=== PATIENT | female | born 1930 | race Caucasian/White ===

== ENCOUNTER 2017-01-13 12:42 | Outpatient (CLI) | payer MEDICARE ==
[2017-01-13 15:14] LABS: Basophils % (Auto) 0.5 % (0.0-1.8); Eosinophils % (Auto) 3.9 % (0.0-4.3); Hematocrit 37.7 % (30.3-42.9); Hemoglobin 12.9 gm/dl (10.1-14.3); Mean Corpuscular HGB Conc 34 % (30-34); Mean Corpuscular Hemoglobin 30 pg (28-32); Mean Corpuscular Volume 88 fl (79-97); Platelet Count 215 K/mm3 (140-440); Red Blood Count 4.29 M/mm3 (3.65-5.03); Red Cell Distribution Width 14.9 % (13.2-15.2); White Blood Count 8.5 K/mm3 (4.5-11.0)
[2017-01-13 15:36] LABS: Alanine Aminotransferase 12 units/L (7-56); Albumin 4.1 g/dL (3.9-5); Albumin/Globulin Ratio 1.1 %; Alkaline Phosphatase 105 units/L (35-129); Anion Gap 20 mmol/L; Blood Urea Nitrogen 17 mg/dL (7-17); Calcium 9.4 mg/dL (8.4-10.2); Carbon Dioxide 24 mmol/L (22-30); Chloride 98.5 mmol/L (98-107); Cholesterol 166 mg/dL (50-199); Glucose 282 mg/dL (65-100); HDL Cholesterol 51 mg/dL (40-59); LDL Cholesterol,Direct 68 mg/dL (50-130); Potassium 4.1 mmol/L (3.6-5.0); Sodium 138 mmol/L (137-145); Total Protein 7.8 g/dL (6.3-8.2); Triglycerides 238 mg/dL (2-149); Uric Acid 4.5 mg/dL (3.5-7.6)
[2017-01-18 01:32] LABS: Vitamin D, 25-OH, Total 16 ng/mL (30-100)
== END 2017-01-13 12:43 | disposition home or self-care (01) ==
LOC: LABHHL 12:42
PROVIDERS: ATTEND Internal Medicine
DX: E11.8 Type 2 diabetes mellitus with unspecified complications (principal); E78.1 Pure hyperglyceridemia
CPT/HCPCS: 36415; 80053; 80061; 82306; 82607; 83036; 84550; 85025

== ENCOUNTER 2018-10-12 08:25 | Outpatient (CLI) | payer MEDICARE ==
[2018-10-12 10:55] LABS: Free T4 (Free Thyroxine) 0.99 ng/dL (0.76-1.46)
== END 2018-10-12 08:26 | disposition home or self-care (01) ==
LOC: LAB 08:25
PROVIDERS: ATTEND Internal Medicine
DX: E11.65 Type 2 diabetes mellitus with hyperglycemia (principal); E03.9 Hypothyroidism, unspecified; I10 Essential (primary) hypertension; K21.9 Gastro-esophageal reflux disease without esophagitis; E78.00 Pure hypercholesterolemia, unspecified
CPT/HCPCS: 36415; 83036; 84439; 84443

== ENCOUNTER 2019-01-26 15:02 | Outpatient (CLI) | payer MEDICARE ==
--- NOTE | 2019-01-26 16:25 | XRay Report ---
RIGHT KNEE 3 VIEWS INDICATION / CLINICAL INFORMATION: M25.561 PAIN IN RIGHT KNEE. COMPARISON: None available. 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 There are large loose bodies se en in the joint and superior patellar recess Signer Name: Tonny Banda MD FACJasmin Signed: 01/26/2019 4:21 PM Workstation Name: [id number]
== END 2019-01-26 15:03 | disposition home or self-care (01) ==
LOC: XRAY 15:02
PROVIDERS: ATTEND Internal Medicine
DX: M17.11 Unilateral primary osteoarthritis, right knee (principal); M11.261 Other chondrocalcinosis, right knee; E11.65 Type 2 diabetes mellitus with hyperglycemia; E78.00 Pure hypercholesterolemia, unspecified; I10 Essential (primary) hypertension; K21.9 Gastro-esophageal reflux disease without esophagitis; E11.9 Type 2 diabetes mellitus without complications

== ENCOUNTER 2019-02-08 09:07 | Outpatient (CLI) | payer MEDICARE ==
[2019-02-08 11:53] LABS: Chol/HDL Ratio 2.19 %
== END 2019-02-08 09:08 | disposition home or self-care (01) ==
LOC: LAB 09:07
PROVIDERS: ATTEND Internal Medicine
DX: E78.5 Hyperlipidemia, unspecified (principal); E03.9 Hypothyroidism, unspecified; E11.65 Type 2 diabetes mellitus with hyperglycemia; I10 Essential (primary) hypertension; K21.9 Gastro-esophageal reflux disease without esophagitis; E78.00 Pure hypercholesterolemia, unspecified; M19.90 Unspecified osteoarthritis, unspecified site
CPT/HCPCS: 36415; 80061; 83036; 84443

== ENCOUNTER 2019-03-08 10:09 | Outpatient (CLI) | payer MEDICARE ==
--- NOTE | 2019-03-08 12:02 | Cat Scan Report ---
CT head/brain wo con INDICATION: Fall, head trauma. TECHNIQUE: Routine CT head without contrast. All CT scans at this location are performed using CT dose reduction for ALARA by means of automated exposure control. COMPARISON: None. FINDINGS: BRAIN / INTRACRANIAL CONTENTS: There is a mixed density right cerebral convexity subdural hematoma lester ggesting acute on chronic subdural hematoma, measuring 8 mm in greatest [id number] dimension. There is mild leftward midline shift of about 3 mm at the level of the third ventricle without downward he rniation. There is no other acute hemorrhage, brain edema, or hydrocephalus. Brain otherwise appears normal for age. CALVARIUM/SKULL BASE/CRANIOCERVICAL JUNCTION: No evidence of fracture. ORBITS: No significant abnormality of visualized orbits. SINUSES / MASTOIDS: No significant abnormality of visualized sinuses and mastoid air cells. ADDITIONAL FINDINGS: None. IMPRESSION: 1. 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 Findings discussed with Dr. Adams at 1054 am central time on 03/08/19. Signer Name: Jimmy Grace MD Signed: 03/08/2019 11:58 AM Workstation Name: [id number]
--- NOTE | 2019-03-08 15:22 | XRay Report ---
CHEST 2 VIEWS INDICATION: W19.XXXA) UNSPECIFIED FALL, INITIAL ENCOUNTER. COMPARISON: None FINDINGS: Support devices: None. Heart: Within normal limits. Lungs/pleura: No acute air space or interstitial disease. No pneumothorax. Additional findings: None. IMPRESSION: No acute findings. Signer Name: Abraham Carmona Jr, MD Signed: 03/08/2019 3:18 PM Workstation Name: [id number]
== END 2019-03-08 10:10 | disposition home or self-care (01) ==
LOC: CT 10:09
PROVIDERS: ATTEND Internal Medicine
DX: S06.5X9A Traumatic subdural hemorrhage with loss of consciousness of unspecified duration, initial encounter (principal); W19.XXXA Unspecified fall, initial encounter; Y93.89 Activity, other specified; Y92.89 Other specified places as the place of occurrence of the external cause; Y99.8 Other external cause status
CPT/HCPCS: 70450; 71046

== ENCOUNTER 2019-06-22 11:10 | Outpatient (CLI) | payer MEDICARE | END 2019-06-22 11:11 | disposition home or self-care (01) | LOC: LAB 11:10 | PROVIDERS: ATTEND Internal Medicine | DX: Z13.21 Encounter for screening for nutritional disorder (principal); E11.65 Type 2 diabetes mellitus with hyperglycemia; E78.5 Hyperlipidemia, unspecified; E03.9 Hypothyroidism, unspecified; Z00.00 Encounter for general adult medical examination without abnormal findings | CPT/HCPCS: 36415; 80053; 80061; 82043; 82306; 82607; 83036; 84443; 85025 ==